=== PATIENT | male | born 1945 | race Caucasian/White ===

== ENCOUNTER 2017-08-10 01:45 | Emergency (ER) | payer MEDICARE, OTHER, MEDICAID ==
[2017-08-10] MEDS ORDERED: Furosemide TAB* 40 MG PO ONE (01:56)
[2017-08-10 03:06] LABS: ABS Basophils 0 10^3/ul (0-0.2); ABS Eosinophils 0.2 10^3/ul (0-0.6); ABS Lymphocytes 1.6 10^3/ul (1.0-4.8); ABS Monocytes 0.6 10^3/ul (0-0.8); ABS Neutrophils 5.4 10^3/ul (1.5-7.7); ABS Nucleated RBC 0 10^3/ul; Eosinophil % 2.7 % (0-6); Hematocrit 40 % (42-52); Hemoglobin 13.2 g/dl (14.0-18.0); Lymphocyte % 20.3 % (25-47); Mean Corpuscular HGB Conc 34 g/dl (31-36); Mean Corpuscular Hemoglobin 31 pg (27-31); Mean Corpuscular Volume 91 fL (80-94); Mean Platelet Volume 7.8 um3 (7.4-10.4); Nucleated Red Blood Cells % 0; Platelet Count 279 10^3/ul (150-450); Red Blood Count 4.32 10^6/ul (4.0-5.4); Red Cell Distribution Width 15 % (10.5-15); White Blood Count 7.8 10^3/ul (3.5-10.8)
[2017-08-10 03:22] LABS: EGFR Non-African American 123.6 (>60)
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
[2017-08-10 05:53] VITALS: BP 158/84
== END 2017-08-10 05:52 ==
LOC: ED 01:45
DX: I87.2 Venous insufficiency (chronic) (peripheral) (principal); R60.0 Localized edema; E66.01 Morbid (severe) obesity due to excess calories; E07.9 Disorder of thyroid, unspecified
CPT/HCPCS: 36415; 80053; 83880; 85025; 99284; A9270-GY

== ENCOUNTER 2018-12-10 03:06 | Observation (INO) | payer MEDICARE, OTHER, MEDICAID ==
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
[2018-12-10 03:52] LABS: ABS Eosinophils 0.2 10^3/ul (0-0.6); ABS Lymphocytes 1.6 10^3/ul (1.0-4.8); ABS Monocytes 0.6 10^3/ul (0-0.8); Eosinophil % 3.3 %; Hematocrit 41 % (42-52); Hemoglobin 13.6 g/dL (14.0-18.0); Lymphocyte % 21.2 %; Mean Corpuscular HGB Conc 33 g/dL (31-36); Mean Corpuscular Hemoglobin 30 pg (27-31); Mean Corpuscular Volume 90 fL (80-94); Mean Platelet Volume 7.6 fL (7.4-10.4); Nucleated Red Blood Cells % 0.1; Platelet Count 289 10^3/uL (150-450); Red Blood Count 4.56 10^6 /uL (4.18-5.48); Red Cell Distribution Width 16 % (10-15); White Blood Count 7.5 10^3/uL (3.5-10.8)
[2018-12-10 04:00] LABS: Activated Partial Thrombo Time 34.5 seconds (26.0-38.0); INR 0.97 (0.82-1.09)
[2018-12-10 04:36] LABS: Albumin 3.8 g/dL (3.2-5.2); Calcium 8.8 mg/dL (8.6-10.3); Magnesium 2.1 mg/dL (1.9-2.7); Total Bilirubin 0.4 mg/dL (0.2-1.0)
[2018-12-10 04:42] LABS: Albumin/Globulin Ratio 1.2 (1-3); BUN/Creatinine Ratio 22.9 (8-20); EGFR African American 110.5 (>60); EGFR Non-African American 91.3 (>60); Globulin 3.1 g/dL (2-4); Total Protein 6.9 g/dL (6.4-8.9)
[2018-12-10 04:47] LABS: Troponin I 0.01 ng/mL (<0.04)
[2018-12-10] MEDS ORDERED: Iodixanol* (CONTRAST) 320 MG/ML 100 ML SDV IV ONE (04:48)
[2018-12-10] MEDS ORDERED: Nitroglycerin TAB 0.4 MG* 0.4 MG TAB SL PRN (08:33)
[2018-12-10] MEDS ORDERED: Acetaminophen TAB* 325 MG PO PRN (08:40)
[2018-12-10] MEDS ORDERED: Artificial Tears* 15 ML BTL BOTH EYES SCH (09:00)
[2018-12-10] MEDS ORDERED: Metoprolol Succinate XL TAB* 50 MG PO SCH (09:00)
[2018-12-10] MEDS ORDERED: Senna/Docusate (NF) TAB PO SCH (09:00)
[2018-12-10] MEDS ORDERED: Polyethyl Glycol/Propylene Gly OPHTH.SOLN BOTH EYES SCH (09:24)
[2018-12-10] MEDS: Cholecalciferol TAB* 1000 UNITS PO SCH (10:38)
[2018-12-10] MEDS: Gabapentin CAP(*) 300 MG PO SCH ×2 (10:38→20:02)
[2018-12-10] MEDS: Polyethylene Glycol 3350* 17 GM PACKET PO SCH (10:38)
[2018-12-10] MEDS: Docusate CAP* 100 MG PO SCH ×3 (10:38→20:05)
[2018-12-10] MEDS: Ropinirole TAB* 0.5 MG TAB PO SCH (10:39)
[2018-12-10] MEDS: Senna TAB 8.6 mg* TAB PO SCH ×2 (10:39→20:02)
[2018-12-10] MEDS: Carbidopa/Levodop 25/100 MG TAB(*) PO SCH ×3 (10:39→20:02)
[2018-12-10] MEDS: Losartan TAB* 25 MG PO SCH (10:39)
[2018-12-10] MEDS: Aspirin EC TAB* 81 MG TAB.EC PO SCH (10:39)
[2018-12-10] MEDS: Furosemide TAB* 40 MG PO SCH (10:39)
[2018-12-10] MEDS: Enoxaparin(*) 40 MG/0.4 ML SYR SUBCUT SCH (10:40)
[2018-12-10] MEDS: Clindamycin 300 MG IVPREMIX(* 300 MG/50 ML SDV IV SCH ×3 (10:40→21:06)
[2018-12-10] MEDS: Cyanocobalamin TAB* 500 MCG PO SCH (10:40)
--- NOTE | 2018-12-10 12:08 | HP ---
CC: Dr. Alejandra Brownlee, [facility] * HISTORY AND PHYSICAL: DATE OF ADMISSION: 12/10/18 TIME OF EVALUATION: 8 a.m. PRIMARY CARE PROVIDER: Dr. Alejandra Brownlee at [facility]. CHIEF COMPLAINT: Chest pain. HISTORY OF PRESENT ILLNESS: Mr. Tiwari is a 73-year-old male with a past medical history of hypertension, osteoarthritis, nephrolithiasis, morbid obesity with a BMI of 47, Parkinson disease, status post parathyroid surgery, who presents to the emergency room with complaints of chest pain. The patient is a poor historian and needs to be redirected multiple times back, the reason why he came to the emergency room. He states that earlier this morning, he developed left-sided chest pain under his breast, radiating to his left axillary area. He is unable to grade the pain at this time, but as per triage note, the pain was a 6/10. He states the pain has no alleviating or precipitating factors. In the emergency room, he was reportedly describing that deep breath aggravated his chest pain, but he did not confirm this to me at this time. He denies shortness of breath, nausea, vomiting, diarrhea, palpitations, fever, or cough. He was admitted to [facility] in February 2017 with complaints of chest pain. At that time, he had a nuclear stress test that showed a moderate size fixed defect of the anterior lateral wall suggestive of previous infarct, but there was no report of ischemia. As per discharge summary , the plan at that time was to pursue a cardiology evaluation if the patient had recurrent symptoms. The impression was that his chest pain was musculoskeletal as it was reproducible on palpation. PAST MEDICAL HISTORY: 1. Hypertension. 2. Osteoarthritis. 3. Nephrolithiasis. 4. Obesity. 5. Parkinson disease. 6. Status post parathyroid surgery. 7. Abnormal stress test as described above. MEDICATION LIST: 1. Acetaminophen 1000 mg p.o. b.i.d. 2. Artificial Tears 1 drop to both eyes b.i.d. 3. Carbidopa/levodopa 25/100, 1.5 tablets p.o. t.i.d. 4. Cholecalciferol 4000 units p.o. daily. 5. Cyanocobalamin 1000 mcg p.o. daily. 6. Furosemide 60 mg p.o. daily. 7. Gabapentin 300 mg p.o. b.i.d. 8. Losartan 100 mg p.o. daily. 9. Metoprolol succinate 50 mg p.o. daily. 10. Nitroglycerin 0.4 mg sublingual once as needed for chest pain. 11. MiraLAX 17 g p.o. daily. 12. Ropinirole 0.25 mg p.o. daily. 13. Senokot 2 tablets p.o. b.i.d. ALLERGIES: With PENICILLIN, the patient experienced swelling of the face, lips , and throat. FAMILY HISTORY: I am unable to obtain from the patient right now. As per prior records, his father and mother passed of old age. SOCIAL HISTORY: No history of tobacco, alcohol, or drug use. He is a long- term resident at [facility]. Surrogate decision maker is his daughter Tanya Tiwari, phone number is [phone] or his son Neri Tiwari, phone number is [phone]. REVIEW OF SYSTEMS: A 14-point review of systems was performed with limitations due to the patient's confusion but all the pertinent negative and positive findings are in the HPI. PHYSICAL EXAMINATION GENERAL: The patient is a morbidly obese gentleman, sitting up in the ED stretcher, in no acute distress, upset because he has not received breakfast. VITAL SIGNS: Temperature 98.0, heart rate is 69, respiratory rate is 20, oxygen saturation 97% on room air, blood pressure is 165/82. HEENT: Pupils are equal. Moist mucous membranes. CHEST: Breath sounds present bilaterally with no added sounds, but with distant sounds and diminished in bases. Chest pain on palpation of the left- sided anterior chest wall. CVS: Normal S1, S2. Regular rate and rhythm, but distant sounds. ABDOMEN: Morbidly obese. Bowel sounds present. EXTREMITIES: There is bilateral lower extremity edema and the patient has an edematous rash above both ankles with no noted purulence. He has good pulses bilaterally, although they are a little difficult to palpate. NEURO: He is alert, awake, oriented to self and place. He has resting tremor of the left upper extremity. He can follow commands. Able to move all 4 extremities. DIAGNOSTIC STUDIES/LAB DATA: The patient had a CBC that showed WBC of 7.5, hemoglobin 13.6, hematocrit 41, platelets of 289 with 67% neutrophils. INR was 0.9, APTT is 34. Chemistry showed a sodium of 140, potassium of 4, chloride 105 , bicarb of 31, BUN of 19, creatinine of 0.83, glucose of 100, lactic acid 0.9, calcium 0.8, magnesium 3.1. LFTs are normal except for an AST of 11. Troponin x2 were negative. BNP is 66. CTA chest, abdomen, and pelvis showed suboptimal enhancement of the pulmonary arterial system, no clot in the main or segmental coronary arteries, difficult to assess the subsegmental pulmonary arteries. Consider repeating the CT scan with different acquisition parameters, lower extremity venous Doppler study, and /or V/Q scan. There is no pulmonary consolidation, no pleural effusion, no pericardial effusion. No aortic aneurysm or dissection. There were no acute intraabdominal findings and no hydronephrosis was seen. EKG done on 12/10/18 at 3:11 a.m. showed sinus rhythm at 65 beats per minute with right bundle-branch block and a left anterior fascicular block, no acute ischemic changes. His heart block seems to have progressed from 2017, but there were no ischemic changes at that time either. ASSESSMENT AND PLAN: Mr. Tiwari is a 73-year-old male with a past medical history of hypertension, osteoarthritis, nephrolithiasis, morbid obesity with a BMI of 47, Parkinson disease, status post parathyroid surgery, abnormal stress test in 2017, who presents to the emergency room with complaints of chest pain. 1. Chest pain, rule out acute coronary syndrome. The patient states that his pain is improved at this time and he is a poor historian and it is difficult to get more characteristics about the pain. His chest pain is reproducible on palpation. This presentation seems similar to his admission in 2017. At this point, the plan is to have him admitted and check serial troponins. It is not clear to me if repeating his stress test would be indicated at this time due to no abnormal stress test in 2017. If he is ruled out, we could attempt the stress test again to see if there is progression of the area of infarct or a new area of ischemia. At this point, I am going to add aspirin to his regimen. Continue metoprolol, check his lipid profile. We will order an echocardiogram to look for wall motion abnormalities. He had a CTA of the chest that was a limited study, but negative for pulmonary embolism considering the limitations of the study. I am going to order a lower extremity Doppler to rule out DVT, but if he is going to have a nuclear medicine study, I think it should be the stress test as the suspicion for pulmonary embolism at this time is lower. 2. Bilateral lower extremity cellulitis. The patient appears to have bilateral lower extremity stasis dermatitis, now complicated by infection. He had lip swelling with penicillin, so he will be treated with clindamycin at this time. 3. Hypertension. We will continue losartan, metoprolol. We will hold the metoprolol if we decide to proceed with the stress test. 4. Parkinson disease. Continue Sinemet. 5. DVT prophylaxis: The patient has a score of 4 on the DVT Prophylaxis Risk Assessment Guide and he will be started on subcutaneous heparin. SCDs are contraindicated due to his bilateral lower extremity cellulitis. 6. Code status is full. TIME SPENT: Approximately 60 minutes was spent with patient's interview, medical records review, physical examination to complete this admission, more than half this time was spent [id number] with the patient and coordination of care. [id number]/[facility] #: [id number] MTDD
[2018-12-10] MEDS ORDERED: Heparin VIAL(*) 5000 UNITS/ML VIAL (FIVE THOUSAND) SUBCUT SCH (14:00)
--- NOTE | 2018-12-10 16:40 | ECHO ---
*[facility]* [place] [address] Fax #: [phone] Transthoracic Echocardiogram Patient: Sunday Tiwari : 1945 Study Date: 12/10/2018 Age: 73 Gender: M HR: 64 bpm Height: 67 in /170.2 cm BSA: 2.42 m^2 Weight: 303.4 lb /137.9 kg BMI: 47.6 kg/m^2 *Soft Work Wrapper Examiner: * Soraya Gonsalez RDCS RN *Referring Physician: * Sol RangelReading Physician: * Nikki Yang MD Indications: Chest Pain, unspecified. History: Angina pectoris. Risk factors: Hypertension. Morbidly obese. Conclusions Summary: - Left ventricle: The cavity size is normal. Wall thickness is mildly increased. Systolic function is normal. The estimated ejection fraction is 60-65%. - Mitral valve: There is trace regurgitation. - Aortic valve: The findings are consistent with borderline stenosis. - Tricuspid valve: There is trace regurgitation. - Ascending aorta: The ascending aorta is mildly dilated. - C/t 07/28/2014, no overt significant changes. Study data: Transthoracic echocardiogram. Procedure: Transthoracic echocardiography was performed. The study was technically limited due to restricted patient mobility and body habitus. The parasternal imaging is fair. The apical imaging is poor. The patient refused the use of Definity for image enhancement. Complete 2D, spectral Doppler, and color flow Doppler. Location: Bedside. Patient status: Inpatient. Patient room number: 433. Rhythm: Normal sinus rhythm with PAC's. Findings Left ventricle: The cavity size is normal. Wall thickness is mildly increased. Systolic function is normal. The estimated ejection fraction is 60-65%. By parasternal imaging, the wall motion is normal and there are no regional wall motion abnormalities. Since the apical imaging is suboptimal and the patient refused Definity, a wall motion abnormality cannot be completely excluded. There is no consistent Doppler evidence of clinically significant diastolic dysfunction. Right ventricle: The cavity size is normal. Systolic function is normal. Left atrium: The atrium is normal in size. Right atrium: The atrium is normal in size. Mitral valve: The leaflets are mildly thickened. There is no evidence of stenosis. There is trace regurgitation. Aortic valve: The annulus is mildly calcified. The valve is trileaflet. The leaflets are mildly thickened. The findings are consistent with borderline stenosis. There is no significant regurgitation. Tricuspid valve: Not well visualized. There is trace regurgitation. Pulmonic valve: Not well visualized. There is no evidence of stenosis. There is trace regurgitation. Aorta: The aorta is mildly dilated. Aortic root: The aortic root is mildly dilated. Ascending aorta: The ascending aorta is mildly dilated. Aortic arch: The aortic arch is not dilated. Pericardium: There is no pericardial effusion. Pulmonary arteries: The main pulmonary artery is normal-sized. Systemic veins: Not well visualized. Inferior vena cava: Not visualized. Measurements Left ventricle Value Ref Aortic valve Value Ref REE, LAX 4.9 cm 4.2 - 5.8 Jose Luis diam, ED 2.1 cm ---- ESD, LAX 3.2 cm 2.5 - 4.0 Jose Luis diam/bsa, ED 0.9 cm/m^2 ---- FS, LAX 36 % 25 - 43 Peak v, S 1.5 m/sec ---- PW, ED (H) 1.2 cm 0.6 - 1.0 VTI, S 34.6 cm ---- IVS/PW, ED 1.03 Mean grad, S 5.0 mm Hg ---- E', lat jose luis, (L) 6.2 cm/sec >=10.0 Peak grad, S 9.0 mm Hg -- -- TDI LVOT/AV, VTI ratio 0.67 ---- E/e', lat jose luis, 13 STUART, VTI 2.10 cm^2 ---- TDI STUART, Vmax 2.01 cm^2 ---- E', med jose luis, 8.6 cm/sec >=7.0 TDI Mitral valve Value Ref E/e', med jose luis, 10 Peak E 0.82 m/sec ---- TDI Peak A 1.07 m/sec ---- E', avg, TDI 7.4 cm/sec Decel time 331 ms ---- E/e', avg, TDI 11 <=14 Peak grad, D 2.7 mm Hg -- -- Peak E/A ratio 0.8 ---- LVOT Value Ref Diam, S 2.00 cm Pulmonic valve Value Ref Area 3.1 cm^2 Peak v, S 0.71 m/sec ---- Peak rosa, S 0.96 m/sec Peak grad, S 2.0 mm Hg ---- VTI, S 23.1 cm Mean grad, S 2 mm Hg Aortic root Value Ref SV 73 ml Root diam 3.5 cm <4.5 SV/bsa 30 ml/m^2 Ascending aorta Value Ref Ventricular septum Value Ref AAo AP diam, S 3.6 cm ---- IVS, ED (H) 1.3 cm 0.6 - 1.0 Aortic arch Value Ref Right ventricle Value Ref Arch diam 3.1 cm ---- REE, LAX 3.3 cm REE minor ax, (H) 4.0 cm 1.9 - 3.5 Decending aorta Value Ref A4C mid Christian peak rosa 0.9 m/sec ---- Left atrium Value Ref AP dim, ES 3.80 cm 3.00 - 4.00 ML dim, A4C 4.8 cm SI dim, A4C 4.5 cm Right atrium Value Ref ML dim, ES, A4C 3.9 cm 2.6 - 4.4 SI dim, ES, A4C 5.1 cm 3.4 - 5.3 Legend: (L) and (H) karan values outside specified reference range. Prepared and electronically signed by Nikki Yang MD 12/10/2018 16:39
--- NOTE | 2018-12-10 18:35 | PN ---
Hospitalist Progress Note Date of Service: 12/10/18 HOSPITALIST ADDENDUM Echo was a limited study and could not r/o wall motion abnormalities. Will order pharmacological nuclear stress test for the morning.
[2018-12-10] MEDS: Dextran 70/Hypromellose Tears Eye Drops 15 ml BTL (for Artificials Tears) BOTH EYES SCH (20:05)
[2018-12-11] MEDS: Clindamycin 300 MG IVPREMIX(* 300 MG/50 ML SDV IV SCH (03:23)
[2018-12-11 07:16] LABS: HDL Cholesterol 40.5 mg/dL
[2018-12-11] MEDS ORDERED: Regadenoson* 0.4 MG/5 ML SYRINGE ONE (07:33)
[2018-12-11] MEDS: Carbidopa/Levodop 25/100 MG TAB(*) PO SCH ×3 (08:12→20:16)
[2018-12-11] MEDS: Senna TAB 8.6 mg* TAB PO SCH ×2 (08:13→20:22)
[2018-12-11] MEDS: Cyanocobalamin TAB* 500 MCG PO SCH (08:15)
[2018-12-11] MEDS: Furosemide TAB* 40 MG PO SCH (08:15)
[2018-12-11] MEDS: Gabapentin CAP(*) 300 MG PO SCH ×2 (08:16→20:19)
[2018-12-11] MEDS: Ropinirole TAB* 0.5 MG TAB PO SCH (08:19)
[2018-12-11] MEDS: Aspirin EC TAB* 81 MG TAB.EC PO SCH (08:19)
[2018-12-11] MEDS: Docusate CAP* 100 MG PO SCH ×2 (08:19→20:19)
[2018-12-11] MEDS: Losartan TAB* 25 MG PO SCH (08:20)
[2018-12-11] MEDS: Cholecalciferol TAB* 1000 UNITS PO SCH (08:21)
[2018-12-11] MEDS: Enoxaparin(*) 40 MG/0.4 ML SYR SUBCUT SCH (08:23)
[2018-12-11] MEDS: Dextran 70/Hypromellose Tears Eye Drops 15 ml BTL (for Artificials Tears) BOTH EYES SCH ×2 (08:30→20:19)
[2018-12-11] MEDS: Polyethylene Glycol 3350* 17 GM PACKET PO SCH (08:33)
--- NOTE | 2018-12-11 10:08 | PN ---
Subjective Date of Service: 12/11/18 Interval History: No more chest pain. I think his history is very unreliable due to his poor memory. Objective Active Medications: Acetaminophen (Tylenol Tab*) 650 mg PO Q6H PRN PRN Reason: MILD PAIN or TEMP > 100.4 Last Admin: 12/11/18 03:22 Dose: 650 mg Artificial Tears (Natural Balance Tears Eye Drop) 1 drop BOTH EYES BID [facility] Last Admin: 12/11/18 08:30 Dose: 1 drop Aspirin (Aspirin Ec Tab*) 81 mg PO DAILY [facility] Last Admin: 12/11/18 08:19 Dose: 81 mg Carbidopa/Levodopa (Sinemet 25/100 Tab(*)) 1.5 tab PO TID [facility] Last Admin: 12/11/18 08:12 Dose: 1.5 tab Cephalexin HCl (Keflex Cap*) 500 mg PO QID [facility] Cholecalciferol (Vitamin D Tab*) 4,000 units PO DAILY [facility] Last Admin: 12/11/18 08:21 Dose: 4,000 units Cyanocobalamin (Vitamin B12 Tab*) 1,000 mcg PO DAILY [facility] Last Admin: 12/11/18 08:15 Dose: 1,000 mcg Docusate Sodium (Colace Cap*) 100 mg PO BID [facility] Last Admin: 12/11/18 08:19 Dose: 100 mg Enoxaparin Sodium (Lovenox(*)) 40 mg SUBCUT Q24H [facility] Last Admin: 12/11/18 08:23 Dose: 40 mg Furosemide (Lasix Tab*) 60 mg PO DAILY [facility] Last Admin: 12/11/18 08:15 Dose: 60 mg Gabapentin (Neurontin Cap(*)) 300 mg PO BID [facility] Last Admin: 12/11/18 08:16 Dose: 300 mg Hydrocortisone (Hytone Cream 1%*) 1 applic TOPICAL TID [facility] Losartan Potassium (Cozaar Tab*) 100 mg PO DAILY [facility] Last Admin: 12/11/18 08:20 Dose: 100 mg Nitroglycerin (Nitroglycerin Tab 0.4 Mg*) 0.4 mg SL ONCE PRN PRN Reason: ANGINA Polyethylene Glycol/Electrolytes (Miralax*) 17 gm PO QAM [facility] Last Admin: 12/11/18 08:33 Dose: Not Given Ropinirole HCl (Requip Tab*) 0.25 mg PO QAM [facility] Last Admin: 12/11/18 08:19 Dose: 0.25 mg Senna (Senokot 8.6 Mg Tab*) 2 tab PO BID [facility] Last Admin: 12/11/18 08:13 Dose: 2 tab Vital Signs - 8 hr 12/11/18 12/11/18 12/11/18 03:58 07:31 08:16 Temperature 98.5 F 98.8 F Pulse Rate 63 66 Respiratory 24 20 16 Rate Blood Pressure 156/82 158/80 (mmHg) O2 Sat by Pulse 95 96 Oximetry Oxygen Devices in Use Now: None Appearance: Alert, partly up in bed. Neutral affect. Looks comfortable. Eyes: No Scleral Icterus Neck: NL Appearance and Movements; NL JVP, No Thyroid Enlargement, Masses Respiratory: Symmetrical Chest Expansion and Respiratory Effort, Clear to Auscultation, Clear to Percussion Cardiovascular: NL Sounds; No Murmurs; No JVD, RRR, No Edema, - Extremities: No Clubbing, Cyanosis, - - 1+ edema BL. Skin: No Nodules or Sclerosis, - - Patchy red area both lower legs, sharply demarcated at sock line, extends 10-12 cm proximally. Neurological: NL Sensation - Gave month as February, year as 1989, season as Fall. Could not remember his daughter's name. Result Diagrams: 12/10/18 03:46 12/10/18 03:46 Microbiology and Other Data: Microbiology 12/10/18 08:10 Nasal Screen MRSA (PCR) - Final Nasal Mrsa Not Detected Assess/Plan/Problems-Billing Assessment: - Patient Problems (1) Chest pain Current Visit: No Status: Acute Code(s): R07.9 - CHEST PAIN, UNSPECIFIED SNOMED Code(s): 11079159 Comment: - Pain is reproducible, suspect muscular cause - Troponin - 0.01, 0.00, 0.00 - Chemical stress test 02/20/17 - moderate sized fixed defect of the anterolateral wall suggestive of previous infarct -Repeat stress test pending 12/11/18. (2) Parkinsons disease Current Visit: No Status: Chronic Priority: Medium Code(s): G20 - PARKINSON'S DISEASE SNOMED Code(s): 10053459 Comment: - Continue carbidopa/levodopa (3) Dementia Current Visit: Yes Status: Acute Code(s): F03.90 - UNSPECIFIED DEMENTIA WITHOUT BEHAVIORAL DISTURBANCE SNOMED Code(s): 07273176 Comment: Probably at his recent baseline. SNF resident. (4) Cellulitis Current Visit: No Status: Acute Priority: High Onset Date: 07/26/14 Code (s): L03.90 - CELLULITIS, UNSPECIFIED SNOMED Code(s): 500785746 Comment: Both legs, ? chronic stasis dermatitis vs superimposed cellulitis. Rx both hydrocortisone oinment and cephalexin. PCN allergy noted, hx not clear on this. (5) Morbid exogenous obesity Current Visit: Yes Status: Acute Code(s): E66.01 - MORBID (SEVERE) OBESITY DUE TO EXCESS CALORIES SNOMED Code(s): 725732563 Comment: BMI 47.8.
[2018-12-11] MEDS ORDERED: Aminophylline IV* 25 MG/ML 10 ML VIAL ONE (12:30)
[2018-12-11] MEDS: Cephalexin CAP* 500 MG PO SCH ×3 (14:18→20:18)
[2018-12-11] MEDS: Hydrocortisone 1% CREAM* 30 GM TUBE TOPICAL SCH ×2 (14:29→20:21)
[2018-12-12 08:21] VITALS: BP 158/57
[2018-12-12] MEDS: Ropinirole TAB* 0.5 MG TAB PO SCH (08:34)
[2018-12-12] MEDS: Losartan TAB* 25 MG PO SCH (08:34)
[2018-12-12] MEDS: Carbidopa/Levodop 25/100 MG TAB(*) PO SCH (08:35)
[2018-12-12] MEDS: Cyanocobalamin TAB* 500 MCG PO SCH (08:37)
[2018-12-12] MEDS: Docusate CAP* 100 MG PO SCH (08:38)
[2018-12-12] MEDS: Cholecalciferol TAB* 1000 UNITS PO SCH (08:39)
[2018-12-12] MEDS: Aspirin EC TAB* 81 MG TAB.EC PO SCH (08:39)
[2018-12-12] MEDS: Furosemide TAB* 40 MG PO SCH (08:42)
[2018-12-12] MEDS: Gabapentin CAP(*) 300 MG PO SCH (08:50)
[2018-12-12] MEDS: Senna TAB 8.6 mg* TAB PO SCH (08:51)
[2018-12-12] MEDS: Cephalexin CAP* 500 MG PO SCH (08:52)
[2018-12-12] MEDS: Dextran 70/Hypromellose Tears Eye Drops 15 ml BTL (for Artificials Tears) BOTH EYES SCH (08:53)
[2018-12-12] MEDS: Enoxaparin(*) 40 MG/0.4 ML SYR SUBCUT SCH (08:54)
[2018-12-12] MEDS: Polyethylene Glycol 3350* 17 GM PACKET PO SCH (08:57)
[2018-12-12] MEDS: Hydrocortisone 1% CREAM* 30 GM TUBE TOPICAL SCH (09:09)
--- NOTE | 2018-12-12 11:19 | PN ---
Progress Note - Progress Note Date of Service: 12/12/18 Note: Time spent on discharge including exam of patient, discussion with patient, nurse, CM, review of EMR and preparation of dishcarge documents is 45 minutes.
--- NOTE | 2018-12-12 12:29 | TRS ---
TRANSFER SUMMARY: DATE OF ADMISSION: DATE OF TRANSFER: 12/12/18 HISTORY: This 73-year-old man was sent from [facility] with a complaint o f chest pain. The patient was a quite a poor historian on admission, the 2 times I saw him, he was a n extremely poor historian, basically unable to answer questions. He did say, yes, chest pain, but c ould not specify when or if it is still present, he tended to sleep all the time. He was monitored on a telemetry unit. He had 3 troponin levels, all of which were within normal limi ts. He underwent a nuclear stress test, which showed no evidence of fixed or reversible perfusion de fect, the ejection fraction was 59% to 63%. On the day of transfer, I am going to start graduated dose reduction of his gabapentin. He will pay 200 mg t.i.d. for a week, then 100 mg t.i.d. for a week, then stop. FINAL DIAGNOSES: 1. Noncardiac chest pain. 2. Parkinson's disease. 3. Dementia. 4. Cellulitis. 5. Morbid obesity. DISCHARGE MEDICATIONS: 1. Cephalexin 500 mg 4 times a day for 7 more days. 2. Hydrocortisone 1% cream t.i.d. to both lower legs while they are significantly red. 3. Furosemide 60 mg daily. 4. Ropinirole 0.25 mg daily. 5. Losartan 100 mg daily. 6. Nitroglycerin 0.4 mg sublingual p.r.n. 7. Carbidopa/levodopa 25/100, 1.5 tablets t.i.d. 8. Acetaminophen 1000 b.i.d. 9. Senna-docusate 2 tabs b.i.d. 10. Gabapentin 200 mg b.i.d. for 1 week, then 100 mg b.i.d. for 1 week, then stop. 11. Vitamin D 2000 units daily. 12. Polyethylene glycol 17 g daily. 13. Metoprolol succinate 50 mg daily. 14. Vitamin B12 1000 mcg daily. 15. Artificial tears 1 drop both eyes b.i.d. 16. Amlodipine 10 mg daily. CONDITION ON DISCHARGE: Stable. DISPOSITION ON DISCHARGE: Discharged to [facility]. [id number]/[id number] #: [id number]
[2018-12-12] MEDS ORDERED: Gabapentin CAP(*) 100 MG PO SCH (21:00)
[2018-12-13] MEDS ORDERED: Cholecalciferol TAB* 1000 UNITS PO SCH (09:00)
== END 2018-12-12 13:20 ==
LOC: ED 03:06 → MEDTELE 08:02
PROVIDERS: ADMIT Internal Medicine; ATTEND Internal Medicine
DX: R07.89 Other chest pain (principal); G20 Parkinson's disease; F03.90 Unspecified dementia, unspecified severity, without behavioral disturbance, psychotic disturbance, mood disturbance, and anxiety; L03.90 Cellulitis, unspecified; E66.01 Morbid (severe) obesity due to excess calories; Z79.899 Other long term (current) drug therapy; I10 Essential (primary) hypertension; M19.90 Unspecified osteoarthritis, unspecified site; Z87.442 Personal history of urinary calculi; Z68.42 Body mass index [BMI] 45.0-49.9, adult; Z88.0 Allergy status to penicillin; I20.9 Angina pectoris, unspecified; R55 Syncope and collapse; F41.0 Panic disorder [episodic paroxysmal anxiety]; I45.10 Unspecified right bundle-branch block; R94.31 Abnormal electrocardiogram [ECG] [EKG]
CPT/HCPCS: 36415; 71045; 71275; 74177; 78452; 80053; 80061; 82150; 83605; 83690; 83735; 83880; 84484; 85025; 85610; 85730; 87641; 93005; 93017; 93306; 93970; 99285; A9270-GY; A9502; G0378; J0280; J1650; J2785; Q9967